=== PATIENT | female | born 1960 | race Native Hawaiian/Other Pacific Islander ===

== ENCOUNTER 2017-03-22 19:06 | Emergency (ER) | payer BC ==
--- NOTE | 2017-03-22 19:30 | C.PDOC ---
History Of Present Illness A 56 year old female presents to the ED c/o abdominal pain and burning sensation radiating to the throat for 2 weeks. Patient notes epigastric discomfort that is a 4/10 that radiates to the back and reports the symptoms being worse today. Patient reports taking omeprazole 40mg instead of 20mg and reports eructations. Patient denies nausea, vomiting, diarrhea, fever, chills, vaginal bleeding or discharge. Time Seen by Provider: 03/22/17 19:30 Chief Complaint (Nursing): GI Problem History Per: Patient History/Exam Limitations: no limitations Onset/Duration Of Symptoms: Days Current Symptoms Are (Timing): Still Present Severity: Mild Pain Scale Rating Of: 4 Location Of Pain/Discomfort: Epigastric Radiation Of Pain To:: Back Quality Of Discomfort: Burning (Throat) Associated Symptoms: denies: Fever, Chills, Nausea, Vomiting, Diarrhea Exacerbating Factors: None Alleviating Factors: None Last Bowel Movement: Today Recent travel outside of the [place]: No Additional History Per: Patient Abnormal Vaginal Bleeding: No Past Medical History Reviewed: Historical Data, Nursing Documentation, Vital Signs Vital Signs: Last Vital Signs Temp 98.1 F 03/22/17 19:23 Pulse 77 03/22/17 20:57 Resp 18 03/22/17 20:57 BP 159/96 H 03/22/17 20:57 Pulse Ox 98 03/22/17 20:57 - Medical History PMH: Anxiety, HTN - [facility] Procedures FALLOPIAN TUBE INSUFFLAT (09/24/01) LOW CERVICAL (06/28/03) OTH LYSIS-PERITONEAL ADHES (06/28/03) UTERINE LES DESTRUCT NEC (09/24/01) UTERINE REPAIR NEC (09/24/01) Family History: States: Unknown Family Hx - Social History Hx Tobacco Use: No Hx Alcohol Use: No Hx Substance Use: No - Immunization History Hx Tetanus Toxoid Vaccination: Yes Hx Influenza Vaccination: Yes Hx Pneumococcal Vaccination: No Review Of Systems Except As Marked, All Systems Reviewed And Found Negative. Constitutional: Negative for: Fever, Chills ENT: Negative for: Throat Pain Cardiovascular: Negative for: Chest Pain Gastrointestinal: Positive for: Abdominal Pain (Epigastric pain). Negative for : Nausea, Vomiting, Diarrhea Genitourinary: Negative for: Vaginal Discharge, Vaginal Bleeding Musculoskeletal: Positive for: Back Pain Skin: Negative for: Rash, Lesions, Jaundice, Bruising Neurological: Negative for: Weakness Psych: Negative for: Anxiety Physical Exam - Physical Exam Appears: Non-toxic, No Acute Distress Skin: Warm, Dry Head: Atraumatic, Normacephalic Eye(s): bilateral: Normal Inspection Oral Mucosa: Moist Neck: Supple Chest: Symmetrical Cardiovascular: No Murmur Respiratory: No Rales, No Rhonchi, No Wheezing Gastrointestinal/Abdominal: Soft, Tenderness (r flank), Distention (Distended and tempanic to percussion), No Rebound Back: Normal Inspection Extremity: Normal ROM Extremity: Bilateral: Atraumatic, Normal Color And Temperature Neurological/Psych: Oriented x3, Normal Speech, Normal Cognition Gait: Steady ED Course And Treatment - Laboratory Results Result Diagrams: 03/22/17 19:48 03/22/17 19:48 ECG: Interpreted By Me, Viewed By Me ECG Rhythm: Sinus Rhythm (80), Nonspecific Changes O2 Sat by Pulse Oximetry: 98 (Room air) Pulse Ox Interpretation: Normal Progress Note: blood work, ivf, zofran, protonix Reevaluation Time: 22:21 Reassessment Condition: Improved Disposition Counseled Patient/Family Regarding: Studies Performed, Diagnosis, Need For Followup, Rx Given - Disposition Referrals: Ke Manrique MD [Primary Care Provider] - Kaiden Torres MD [Staff Provider] - Disposition: HOME/ ROUTINE Disposition Time: 19:30 Condition: FAIR Additional Instructions: Please ask dr Manrique for urology referral Prescriptions: Ibuprofen [Motrin] 600 mg PO TID PRN #15 tab PRN Reason: Pain, Moderate (4-7) Tamsulosin [Flomax] 0.4 mg PO DAILY #14 cap Instructions: Renal Colic (ED), Kidney Stones (DC) - Clinical Impression Clinical Impression: Renal colic on right side, Kidney stone on right side - Scribe Statement The provider has reviewed the documentation as recorded by the Scribe Scarlet [email or web address] All medical record entries made by the Scribe were at my direction and personally dictated by me. I have reviewed the chart and agree that the record accurately reflects my personal performance of the history, physical exam, medical decision making, and the department course for this patient. I have also personally directed, reviewed, and agree with the discharge instructions and disposition.
[2017-03-22] MEDS ORDERED: Sodium Chloride 0.9% 1,000 ML IV ONE (19:37)
[2017-03-22 19:53] LABS: BASO % 0.4 % (0.0-2.0); EOS # 0.1 K/uL (0.0-0.7); EOS % 0.7 % (0.0-4.0); HEMATOCRIT 41.8 % (34.0-47.0); LYMPH # 1.5 K/uL (1.0-4.3); LYMPH % 12.1 % (20.0-40.0); MEAN CELL VOLUME 88.5 fL (81.0-99.0); MEAN CORPUSCULAR HEMOGLOBIN 29.2 pg (27.0-31.0); MEAN PLATELET VOLUME 9.4 fL (7.2-11.7); MONO # 0.7 K/uL (0.0-0.8); MONO % 5.4 % (0.0-10.0); RED CELL DISTRIBUTION WIDTH 12.5 % (11.5-14.5); WHITE BLOOD COUNT 12.5 K/uL (4.8-10.8)
[2017-03-22 20:02] LABS: CHLORIDE 101 mmol/L (98-107); INR 1.1; SODIUM 140 mmol/L (132-148)
[2017-03-22 20:04] LABS: AST/SGOT 31 U/L (14-36); BILIRUBIN,TOTAL 0.7 mg/dL (0.2-1.3); CARBON DIOXIDE 24 mmol/L (22-30); GFR AFRICAN-AMERICAN > 60
[2017-03-22 20:05] LABS: ALB/GLOB RATIO 1.4 (1.0-2.1); ALKALINE PHOSPHATASE 61 U/L (38-126); ALT/SGPT 23 U/L (9-52); BLOOD UREA NITROGEN 23 mg/dL (7-17); CALCIUM 8.7 mg/dl (8.6-10.4); GLUCOSE,RANDOM 95 mg/dL (65-105); TOTAL PROTEIN 7.6 g/dL (6.3-8.3)
[2017-03-22] MEDS ORDERED: Sodium Chloride 0.9% 1,000 ML ONE (20:37)
[2017-03-22 20:47] LABS: RBC URINE 1565 /hpf (0-3); URINE BACTERIA RARE (<OCC); URINE BILIRUBIN NEGATIVE (NEGATIVE); URINE BLOOD 3+ (NEGATIVE); URINE COLOR Yellow (YELLOW); URINE GLUCOSE (UA) NORMAL (Normal); URINE KETONE NEGATIVE (NEGATIVE); URINE LEUKOCYTE ESTERASE NEG Leu/uL (Negative); URINE PROTEIN NEGATIVE (NEGATIVE); URINE UROBILINOGEN NORMAL mg/dL (0.2-1.0); WBC URINE 11 /hpf (0-5)
[2017-03-22 20:58] VITALS: RESP 18
[2017-03-22] MEDS ORDERED: Iodixanol 320 MG/ML 100 ML BOTTLE IV ONE (21:27)
--- NOTE | 2017-03-22 22:06 | CT ---
EXAM: CT Abdomen and Pelvis With Intravenous Contrast CLINICAL HISTORY: 56 years old, female; Pain; Abdominal pain; Generalized; Additional info: Abd pain, bloating, TECHNIQUE: Axial computed tomography images of the abdomen and pelvis with intravenous contrast. This CT exam was performed using one or more of the following dose reduction techniques: automated exposure control, adjustment of the mA and/or kV according to patient size, and/or use of iterative reconstruction technique. Coronal and sagittal reformatted images were created and reviewed. CONTRAST: 100 mL of [id number] administered intravenously. COMPARISON: No relevant prior studies available. FINDINGS: Limitations: Motion artifact - mild. Lower thorax: Mild cardiomegaly. Minimal atelectasis/scarring. ABDOMEN: Liver: Unremarkable. No mass. Gallbladder and bile ducts: No calcified stones. No ductal dilation. Pancreas: No ductal dilation. No mass. Spleen: No splenomegaly. Adrenals: No mass. Kidneys and ureters: Mild stranding about RIGHT kidney. Too small to characterize lesion within RIGHT kidney. Mild pelvocaliectasis of RIGHT kidney. Mildly dilated RIGHT ureter. 0.4 x 0.3 x 0.2 cm calculus within RIGHT distal ureter. Stomach and bowel: Mild mural thickening vs underdistention gastric antrum. No definite bowel wall thickening. No obstruction. Appendix: No findings to suggest acute appendicitis. PELVIS: Bladder: Unremarkable. Reproductive: Lobulated, heterogeneous uterus with multiple masses. Suboptimal delineation of ovaries. ABDOMEN and PELVIS: Intraperitoneal space: No significant fluid collection. No free air. Bones/joints: Mild scoliosis and degenerative changes of spine. No acute fracture. Soft tissues: Unremarkable. Vasculature: Unremarkable. No abdominal aortic aneurysm. Lymph nodes: No pathologically enlarged lymph nodes. IMPRESSION: 1. RIGHT distal ureteral calculus with mild hydroureteronephrosis. 2. Probable fibroid uterus. Followup is suggested. 3. Incidental/non-acute findings are described above.
[2017-03-22 23:12] VITALS: BP 134/79; PULSE 74; TEMP 98.7; O2SAT 99
--- NOTE | 2017-03-24 14:02 | CARD ---
APPROVED REPORT EKG Measurement Heart [id number] ME 160P-5 [id number] <Conclusion> Normal sinus rhythm Moderate voltage criteria for LVH, may be normal variant Borderline ECG
== END 2017-03-22 23:12 | disposition home or self-care (01) ==
LOC: C.ER 19:06 → SUPCPDRO 19:06 → C.ER 23:12
DX: N20.0 Calculus of kidney (principal)
CPT/HCPCS: 74177; 80053; 81001; 82150; 83690; 84703; 85025; 85610; 85730; 93005; 96361; 96374; 96375; 99285; C9113; J2270; J2405; J7040; Q9967